=== PATIENT | male | born 1995 | race Caucasian/White ===

== ENCOUNTER 2020-09-03 14:49 | Emergency (ER) | payer OTHER ==
[~2020-09-03] VITALS: Ht 175.3 cm; Wt 82.2 kg
[2020-09-03 14:55] VITALS: BP 144/65
[2020-09-03] MEDS ORDERED: KETOROLAC 15 MG/ML VIAL. IVP ONE (15:30)
[2020-09-03] MEDS ORDERED: IV NORMAL SALINE 1,000ML 1,000 ML IV ONE (15:30)
[2020-09-03 15:36] LABS: BASO % 0 % (0-3); EOS # 0.1 x10^3/uL (0.0-0.7); EOS % 2 % (0-3); HEMATOCRIT 43.6 % (39.0-53.0); HEMOGLOBIN 14.6 g/dL (13.0-17.5); LYMPH # 1.9 x10^3/uL (1.0-4.8); LYMPH % 31 % (24-48); MEAN CORPUSCULAR HEMOGLOBIN 29 pg (25-35); MEAN CORPUSCULAR HGB CONC 34 g/dL (31-37); MEAN CORPUSCULAR VOLUME 86 fL (79-100); MONO # 0.7 x10^3/uL (0.0-1.1); MONO % 11 % (0-9); NEUT # 3.4 x10^3uL (1.8-7.7); NEUT % 55 % (31-73); PLATELET COUNT 319 x10^3/uL (140-400); RED BLOOD COUNT 5.09 x10^6/uL (4.30-5.70); RED CELL DISTRIBUTION WIDTH 14.2 % (11.5-14.5); WHITE BLOOD COUNT 6.1 x10^3/uL (4.0-11.0)
--- NOTE | 2020-09-03 15:37 | PHYS DOC ---
Past History Past Medical History: Kidney Stones Past Surgical History: No Surgical History Alcohol Use: Rarely General Adult EDM: Chief Complaint: GROIN PAIN HPI: HPI: Patient is a 24-year-old male coming in for [facility] (morning. States has a history of kidney stones and had 1 less than a year ago that he passed about 1 day. Patient states he had some leftover ketorolac which she took with some improvement in pain. Has had a little bit of dysuria since the pain started. Says the pain is on his left flank and radiates from the mid abdomen to the flank. Says it is pressure-like to sharp. Denies any other symptoms. Review of Systems: Review of Systems: All other systems within normal limits except for as noted in the HPI Current Medications: Current Meds: Current Medications Medications (Trade) Dose Ordered Sig/[place] Start Time Stop Time Status Last Admin Dose Admin Ketorolac Tromethamine (Toradol 15mg Vial) 15 mg 1X ONCE 09/03/20 15:30 09/03/20 15:31 UNV Sodium Chloride 1,000 ml @ 1,000 mls/hr 1X ONCE 09/03/20 15:30 09/03/20 16:29 UNV Allergies: Allergies: Allergies Coded Allergies Type Severity Reaction Last Updated Verified No Known Drug Allergies 09/03/20 No Physical Exam: PE: Constitutional: Well developed, well nourished, no acute distress, non-toxic appearance. [] HENT: Normocephalic, atraumatic, bilateral external ears normal, nose normal. [] Eyes: PERRLA, conjunctiva normal, no discharge. [] Neck: No rigidity, supple, no stridor. [] Cardiovascular: Regular rate and rhythm, brisk cap refill [] Lungs & Thorax: Non labored symmetric respirations, no tachypnea or respiratory distress [] Abdomen: Soft, nondistended. Skin: Warm, dry, no erythema, no rash. [] Back: Unremarkable, no spinal tenderness, left CVA tenderness. Extremities: No deformities, range of motion grossly intact, no lower extremity edema [] Neurologic: Alert and oriented X 3, no focal deficits noted. [] Psychologic: Affect normal, judgement normal, mood normal. [] Current Patient Data: Vital Signs: Vital Signs Date Time Temp Pulse Resp B/P (MAP) Pulse Ox O2 Delivery O2 Flow Rate FiO2 2/17/21 14:55 97.9 77 16 144/65 (91) 98 Room Air EKG: EKG: [] Radiology/Procedures: Radiology/Procedures: CT ABDOMEN+PELVIS WO Clinical Indication: Reason: left flank pain, stone study / Spl. Instructions: / History: Comparison: None. Technique: Helical CT imaging of the abdomen and pelvis is performed without IV or oral contrast. Findings: Lung bases are clear. Cardiac size normal. The liver, gallbladder, spleen, pancreas, adrenal glands, and abdominal aorta are normal. There is a punctate nonobstructing calculus of the right kidney. There is no right hydronephrosis. There is no left renal calculus. There is mild left hydroureteronephrosis secondary to a 3 mm calculus at the ureterovesicular junction, image 135. No obvious abnormality of the stomach. No dilated small bowel. The appendix is normal. There is no colon wall thickening. No abdominal adenopathy or free fluid. Urinary bladder is mostly decompressed accentuating the wall thickness. The prostate and seminal vesicles are normal. There is no pelvic free fluid. No acute bone abnormality. IMPRESSION: 1. Mild left obstructive uropathy secondary to a 3 mm calculus at the ureterovesicular junction. 2. There is a punctate nonobstructing right renal calculus. [] Heart Score: Risk Factors: Risk Factors: DM, Current or recent (<one month) smoker, HTN, HLP, family history of CAD, obesity. Risk Scores: Score 0 - 3: 2.5% MACE over next 6 weeks - Discharge Home Score 4 - 6: 20.3% MACE over next 6 weeks - Admit for Clinical Observation Score 7 - 10: 72.7% MACE over next 6 weeks - Early Invasive Strategies Course & Med Decision Making: Course & Med Decision Making Pertinent Labs and Imaging studies reviewed. (See chart for details) [] Dragon Disclaimer: Dragon Disclaimer: This electronic medical record was generated, in whole or in part, using a voice recognition dictation system. Departure Departure: Impression: Primary Impression: Kidney stone on left side Disposition: 01 DC HOME SELF CARE/HOMELESS Condition: STABLE Referrals: KARINE THACKER (PCP) Patient Instructions: Diet for Kidney Stones Additional Instructions: Follow-up with your urologist Scripts Hydrocodone/Acetaminophen (Hydrocodone-Acetamin 7.5-325) 1 Each Tablet 1 EACH PO PRN Q6HRS PRN for PAIN for 5 Days, #10 TAB Prov: FARIDEH YO MD 09/03/20 Ibuprofen (IBUPROFEN) 800 Mg Tablet 1 TAB PO TID PRN for PAIN for 10 Days, #30 TAB 1 Refill Prov: FARIDEH YO MD 09/03/20 Tamsulosin Hcl (FLOMAX) 0.4 Mg Cap.er.24h 1 CAP PO DAILY for kidney stone for 10 Days, #10 CAP 11 Refills Prov: FARIDEH YO MD 09/03/20 FARIDEH YO MD Sep 03, 2020 15:37
--- NOTE | 2020-09-03 15:58 | RAD ---
PQRS Compliance Statement: One or more of the following individualized dose reduction techniques were utilized for this examinat ion: 1. Automated exposure control 2. Adjustment of the mA and/or kV according to patient size 3. Use of iterative reconstruction technique CT ABDOMEN+PELVIS WO Clinical Indication: Reason: left flank pain, stone study / Spl. Instructions: / History: Comparison: None. Technique: Helical CT imaging of the abdomen and pelvis is performed without IV or oral contrast. Findings: Lung bases are clear. Cardiac size normal. The liver, gallbladder, spleen, pancreas, adrenal glands, and abdominal aorta are normal. There is a punctate nonobstructing calculus of the right kidney. There is no right hydronephrosis. Th ere is no left renal calculus. There is mild left hydroureteronephrosis secondary to a 3 mm calculus at the ureterovesicular junction, image 135. No obvious abnormality of the stomach. No dilated small bowel. The appendix is normal. There is no co blas wall thickening. No abdominal adenopathy or free fluid. Urinary bladder is mostly decompressed accentuating the wall thickness. The prostate and seminal vesi cles are normal. There is no pelvic free fluid. No acute bone abnormality. IMPRESSION: 1. Mild left obstructive uropathy secondary to a 3 mm calculus at the ureterovesicular junction. 2. There is a punctate nonobstructing right renal calculus. Electronically signed by: Cleveland Frederick MD (09/03/2020 3:55 PM) [facility]
[2020-09-03 17:00] LABS: BILIRUBIN,URINE NEG (NEG); CLARITY,URINE CLEAR; COLOR,URINE YELLOW; GLUCOSE,URINE NEG (NEG); NITRITE,URINE NEG (NEG); UROBILINOGEN,URINE 0.2 mg/dL (0.2 mg/dL)
[2020-09-03 17:01] LABS: BACTERIA,URINE 0 /HPF (0-FEW); SQUAMOUS EPITHELIAL CELL,UR OCC /LPF; WBC,URINE 0 /HPF (0-4)
[2020-09-03] MEDS ORDERED: IBUP800T19 PO (17:12)
[2020-09-03] MEDS ORDERED: TAMS0.4C97 PO (17:12)
[2020-09-03] MEDS ORDERED: HYDR-2763 PO (17:12)
== END 2020-09-03 17:16 | disposition home or self-care (01) ==
LOC: ER 14:49
DX: N13.2 Hydronephrosis with renal and ureteral calculous obstruction (principal); Z87.442 Personal history of urinary calculi
CPT/HCPCS: 36415; 74176; 81001; 85025; 96361; 96374; 96375; 99284; J1885; J3010; J7030